=== PATIENT | female | born 1970 | race Caucasian/White ===

== ENCOUNTER 2016-07-09 21:07 | Emergency (ER) | payer OTHER ==
[~2016-07-09] VITALS: Ht 160 cm; Wt 103.6 kg
[~2016-07-09 21:07] MED LIST: IBUP800T28 PO; LAMO25TA PO
[2016-07-09 21:09] VITALS: BP 147/85; PULSE 85; RESP 20; O2SAT 98
[2016-07-09] MEDS ORDERED: 0.9% Sodium Chloride 1,000 ML IV ONE (22:16)
--- NOTE | 2016-07-09 22:16 | ED.REPORT ---
HPI-Headache Date of Service Jul 09, 2016 ED Provider: Bandar Olsen MD Mrs. Yasmine Benz is a 46-year-old female with past medical history significant for 3 episodes seizure-like activity with prodromal headache roughly 7 weeks between episodes and anxiety with one year depression, presents at [facility] emergency department with three-day history of headache similar to episodes in the past with fear of impending seizure. She was hospitalized in the past for 3 days for similar symptoms and placed on Klonopin. Headache is described as 6-10/10 waxing and waning sharp bilateral pain that started in her neck and is currently worked its way frontally. She states that she is also prescribed some light sensitivity and hurts more with eye movement. Denies visual focal changes such as loss of vision or floaters and scotoma. Denies syncope, chest pain, cough, fever, chills, nausea, vomiting , abdominal pain, constipation, diarrhea. She reports mild dizziness and mild nausea. Of note she reports previous episodes of seizure-like activity of all occurred while lying down flat in her bed asleep are described as myoclonic in nature with patient being unconscious and no memory of the episodes. She also reports tongue injury, and one episode of incontinence with one of these episodes. Nursing Notes Stated Complaint: HEADACHE Chief Complaint: Headache Nursing Notes Reviewed: Yes Allergies: Coded Allergies: ketorolac (Verified Allergy, Severe, anaphylaxis, 05/30/16) tetracycline (Verified Allergy, Intermediate, Rash, 05/30/16) doxycycline (Unverified Allergy, Unknown, 05/30/16) codeine (Verified Adverse Reaction, Intermediate, GI symptoms "burning", 05/30/16) Scheduled Ibuprofen (Ibuprofen) 800 Mg Tablet 800 MG PO BID Lamotrigine (Lamotrigine) 25 Mg Tablet 25 MG PO BID General Time Seen by MD: 21:20 Chief Complaint Headache, Other Hx Obtained From: Patient, Spouse Sudden in Onset?: No Onset Occurred: 3 days ago Symptom Duration: Waxes and wanes Past Medical History Past Medical History Chronic pain due to pinched nerves between L4 and L5 no longer on Hydrocodone. Seizures total including today's visit every 7 weeks (3 prior episodes) Past Surgical History Bladder suspension Reports: Hysterectomy Reports: Tubal ligation Family History Strong family hx of seizures Smoking History Former Smoker (quit in 2008, smoked 1.5 packs per day for 15-20 years), Unknown if Ever Smoker Social History Alcohol Use: Denies alcohol use Drug Use: THC ("15 hits per day for >10 years") Ambulatory Status Independent Review of Systems A comprehensive review of systems was conducted with the patient and found to be negative except as above in the History of Present Illness. Constitutional: Denies: Chills, Fever Eyes: Reports: Photophobia, Denies: Diplopia, Visual loss bilateral GI: Reports: Nausea (mild), Denies: Abdominal pain, Constipation, Diarrhea, Vomiting Complete sys rev & neg: except as marked. Physical Exam General: Middle aged lady lying in bed in mild acute distress, well-developed and obese, well-nourished, appropriately interactive HEENT: Normocephalic, atraumatic. External ears without defect. Pupils equal, round, and reactive to light and accommodation. Anicteric sclerae, moist conjunctivae, and no lid lag. Oropharynx free of erythema and cobble stoning with moist mucosa. Neck: Supple with full range of motion with some restrictions to side bending without pain/stiffness with full flexion. No jugular venous distension. No bruits. No lymphadenopathy or thyromegaly. Cardiovascular: Regular rate and rhythm with no murmurs, rubs, or gallops appreciated Pulmonary: Clear to auscultation bilaterally with no crackles, wheezes, or rhonchi. Normal respiratory effort with no use of accessory muscles. Abdomen: Bowel tones present. Soft, nontender, nondistended. No hepatosplenomegaly or masses appreciated. Extremities: No clubbing, cyanosis, edema, or lymphadenopathy appreciated. Skin: Normal temperature, turgor, and texture; no rash, ulcers, or subcutaneous nodules appreciated. Neurological: Cranial nerves grossly intact. Normal muscle strength, tone, and bulk. Reflexes, coordination, and sensory function within normal limits. No known gait impairment. Psychiatric: Normal mood and affect. Alert and oriented to person, place, and time. Initial Vital Signs Vital Signs (First) Date Time Temp Pulse Resp B/P Pulse Ox O2 Delivery O2 Flow Rate FiO2 07/09/16 21:09 36.6 85 20 147/85 98 07/10/16 00:55 Room Air Interpretation & Diagnostics Lab Results Interpretation Result Diagram: 07/09/16212507/09/162125 Test 07/09/16 21:26 White Blood Count 8.0th/mm3 (3.8-10.1) Red Blood Count 4.53mil/mm3 (3.90-5.20) Hemoglobin 14.2g/dL (12.0-15.6) Hematocrit 41.6% (35.0-46.0) Mean Corpuscular Volume 91.8fL (81-100) Mean Corpuscular Hemoglobin 31.3pg (27.0-35.0) Mean Corpuscular Hemoglobin Concent 34.1% (32.0-37.0) Red Cell Distribution Width 12.2% (12.3-15.4) Platelet Count 157bil/L (150-400) Neutrophils (%) (Auto) 52.6% (40-74) Lymphocytes (%) (Auto) 31.3% (14-46) Monocytes (%) (Auto) 11.1% (4-12) Eosinophils (%) (Auto) 4.0% (0-5) Basophils (%) (Auto) 0.9% (0-3) Erythrocyte Sedimentation Rate 8mm/hr (0-32) Hold Purple Top Tube Received (Received) Hold Blue Top Tube Received (Received) Sodium Level 137mEq/L (134-144) Potassium Level 4.2mEq/L (3.5-5.2) Chloride Level 99mEq/L (97-108) Carbon Dioxide Level 25mmol/L (18-29) Blood Urea Nitrogen 9mg/dL (6-24) Creatinine 0.62mg/dL (0.57-1.00) Estimat Glomerular Filtration Rate 148mL/min (>59) Glucose Level 101mg/dL (60-99) Calcium Level 9.4mg/dL (8.5-10.1) Total Bilirubin 0.2mg/dL (0.0-1.2) Aspartate Amino Transf (AST/SGOT) 22U/L (0-50) Alanine Aminotransferase (ALT/SGPT) 26U/L (0-32) Alkaline Phosphatase 97U/L (25-150) Total Protein 7.4g/dL (6.4-8.4) Albumin 4.5g/dL (3.4-5.0) Hold [place] Top Tube Received (Received) Re-Eval/Medical Decision Med Decision/Clinical Course 46-year-old female with significant history of anxiety and possible seizure-like episodes with brief workup from a neurologist during her last hospital stay. She is to see a neurologist in the office for further management and is awaiting an opening in the neurology office in [place]. She currently does not drive and is aware that with documented seizure-like activity she was retreated before receiving her license. We osvaldo blood samples for CBC and CMP for electrolyte abnormalities. We will treat her headache with Toradol, dexamethasone, Haldol as well as 1 L of normal saline. Aside from a slightly elevated initial blood pressure her vitals have been completely normal and all blood work results has been noncontributory. 47-year-old with a history of seizure-like activity, awaiting further evaluation by neurology. Episodes related to us suggest onset during sleep, and associated with at least occasional incontinence and tongue biting. Etiology of these episodes is not clear, but these features to suggest epileptic activity. The periodicity and prodromal headache are less typical features. Await completion of her evaluation including EEG. She has been made aware and understands that she may not drive while this situation is pending. She was advised strongly not to use his Xanax both for avoidance of withdrawal headache, and for the potential for precipitating seizures with rapid metabolism of the Xanax. Her headache is responded tonight to routine migraine cocktail. She is discharged in stable condition for follow-up with neurology as scheduled. Re-Evaluation/Progress : Time of Eval: 10:28 )( Patient Status: Condition improved Re-Evaluation/Progress Note: Patient is rechecked. Further history is obtained. Neuro exam is reassuring. She is informed of her results and the current treatment plan. Discharge & Departure Shift Change Sign-Out Response to Therapy: Improved Impression: Primary Impression: Migraine Additional Impression: Seizure-like activity Disposition: Home Discharge Condition All VS Reviewed: Yes Condition: Stable Additional Instructions: During you visit to [facility] Emergency Department we obtained blood work for infectious markers, hemoglobin levels, and electrolytes. All your lab values were within normal limits. You were treated with IV Toradol , IV Haldol, IV Decadron and 1 L normal saline. Do not hesitate to call emergency services or your primary care physician if you experience any of the following. -High unrelenting fevers. -Uncontrolled vomiting. -Severe hypertension. -Syncope or loss of consciousness. -Chest pain or severe shortness of breath. Follow up with your primary care physician in 1-2 weeks time following your emergency department visit for medication checks and general well-being. Establish care with a neurologist for further treatment of seizure-like activity. Referrals: Andrea Marc MD (PCP) Liz Attestation Portions of this note were transcribed by Raul Hyde. I, Dr. Olsen personally performed the history, physical exam and medical decision-making; I reviewed and confirmed the accuracy of the information in the transcribed note. Signed by: Liz Gutiérrez, 07/09/16 2300. Attending Statement As attending of record for this patient, I conducted an independent history and physical examination, and concur with the resident documentation as detailed above, and as amended. copies to: Andrea Marc MD, COREY P DO Jul 09, 2016 22:16 RAUL HYDE Jul 09, 2016 22:46 Bandar Olsen MD Jul 10, 2016 06:35
[2016-07-09] MEDS ORDERED: Ondansetron 2 mg/mL 2 mL Inj IVPUSH ONE (22:20)
[2016-07-09] MEDS ORDERED: Dexamethasone 10 mg/mL Inj IVPUSH ONE (22:20)
[2016-07-09] MEDS ORDERED: Haloperidol 5 mg/mL Inj IVPUSH ONE (22:20)
[2016-07-09 22:29] LABS: BASOPHILS % (AUTO) 0.9 % (0-3); MONOCYTES % (AUTO) 11.1 % (4-12); Mean Corpuscular Hemoglobin 31.3 pg (27.0-35.0); Mean Corpuscular Volume 91.8 fL (81-100); NEUTROPHILS % (AUTO) 52.6 % (40-74); Platelet Count 157 bil/L (150-400)
[2016-07-09 22:55] LABS: ERYTHROCYTE SEDIMENTATION RATE 8 mm/hr (0-32)
[2016-07-10 00:55] VITALS: BP 110/55; PULSE 74; RESP 16; O2SAT 97
== END 2016-07-10 00:55 | disposition home or self-care (01) ==
LOC: SED 21:07
DX: G43.909 Migraine, unspecified, not intractable, without status migrainosus (principal); R56.9 Unspecified convulsions; Z87.891 Personal history of nicotine dependence; Z88.1 Allergy status to other antibiotic agents; Z88.5 Allergy status to narcotic agent; Z88.8 Allergy status to other drugs, medicaments and biological substances
CPT/HCPCS: 36415; 80053; 85025; 85651; 96361; 96374; 96375; 99284; J1100; J1200; J1630; J2405; J7030